=== PATIENT | female | born 1980 | race Caucasian/White ===

== ENCOUNTER 2019-03-03 14:49 | Emergency (ER) | payer BC, SELFPAY ==
--- OUTSIDE RECORDS SUMMARY | 2019-03-03 14:52 | XMS REPORT ---
:1980 [facility] Address [address] [place] [address] Dr. Bro [address] [place] [address] Care Team Providers Name Role Phone Unavailable Unavailable Unavailable Problems This patient has no known problems. Allergies, Adverse Reactions, Alerts This patient has no known allergies or adverse reactions. Medications This patient has no known medications.
--- OUTSIDE RECORDS SUMMARY | 2019-03-03 14:52 | XMS REPORT | Summary of Care ---
:1980 Author Organization [facility] Address [address] [place] [id number] Care Team Providers Name Role Phone Pcp, Patient Does Not Have A Primary Care Provider Reason for Referral Radiology Services (STAT) Status Reason Specialty Diagnoses / Referred By Referred To Procedures Contact Contact New Request Diagnostic Diagnoses Suicidal ideation Dimitri Minor Radiology Procedures XR CHEST 1 VW III, PA [address] [place] [address] [facility] [place] [address] Radiology Services (STAT) Status Reason Specialty Diagnoses / Referred By Referred To Procedures Contact Contact New Request Diagnostic Diagnoses Suicidal ideation Dimitri Minor Radiology Procedures XR CHEST 1 VW III, PA [address] [place] [address] [facility] [place] [address] Reason for Visit Reason Comments Suicidal ideation Auth/Cert Status Reason Specialty Diagnoses / Referred By Referred To Procedures Contact Contact [facility] [address] [place] [address] [place] [address] Encounter Details Date Type Department Care Team Description 02/27/2019 - Emergency ADC-Emergency Dimitri Minor Depression, unspecified depression type (Primary Dx); 02/28/2019 Department III, PA Suicidal ideation; [address] [place] [address] Alcoholic intoxication [place] [address] [facility] [place] [address] [phone] Allergies No Known Allergiesdocumented as of this encounter (statuses as of 02/28/2019) Medications No known medicationsdocumented as of this encounter (statuses as of 02/28/2019) Active Problems No known active problemsdocumented as of this encounter (statuses as of 2018) Social History Tobacco Use Types Packs/Day Years Used Date Never Assessed Sex Assigned at Date Recorded Not on file Job Start Date Occupation Industry Not on file Not on file Not on file Travel History Travel Start Travel End No recent travel history available. documented as of this encounter Last Filed Vital Signs Vital Sign Reading Time Taken Comments Blood Pressure 104/59 02/28/2019 4:56 AM CDT Pulse 67 02/28/2019 4:56 AM CDT Temperature 37 C (98.6 F) 02/27/2019 10:00 PM CDT Respiratory Rate 18 02/28/2019 4:56 AM CDT Oxygen Saturation 97% 02/28/2019 4:56 AM CDT Inhaled Oxygen Concentration - - Weight 59 kg (130 lb) 02/27/2019 3:32 PM CDT Height - - Body Mass Index - - documented in this encounter Discharge Instructions Walt Castro MD - 02/28/2019 DIAGNOSIS Diagnoses that have been ruled out: None Diagnoses that are still under consideration: None Final diagnoses: Suicidal ideation Alcoholic intoxication without complication Depression, unspecified depression type NO LIFE-THREATENING FINDINGS ON TODAY'S EXAM. PROCEDURES IN THE ER TODAY: Orders Placed This Encounter Procedures XR CHEST 1 VW ACETAMINOPHEN ADC / LCC - DRUG SCREEN TRIAGE THYROID STIMULATING HORMONE ETHANOL CBC WITH DIFF COMP. METABOLIC PANEL (72571) URINALYSIS POCT TEST CBC WITH DIFFERENTIAL ETHANOL MEDICATIONS ADMINISTERED IN THE ER TODAY AND DISCHARGE MEDICATIONS: Orders Placed This Encounter Medications nicotine (NICODERM) 21 mg/24 hr patch 1 Patch NaCl 0.9% (NS) bolus infusion 1,000 mL ondansetron (ZOFRAN (PF)) injection 4 mg LORazepam (ATIVAN) tablet 1 mg acetaminophen (TYLENOL) tablet 650 mg FOLLOW-UP RECOMMENDATIONS: RECOMMEND FOLLOW-UP WITH THE [facility] ALREADY SCHEDULED FOR TOMORROW MORNING RETURN TO ER FOR WORSENING OF SYMPTOMS documented in this encounter Plan of Treatment Name Type Priority Associated Diagnoses Order Schedule EKG-12 LEAD ROUTINE HEART STATION Routine ONCE for 1 Occurrences starting 02/27/2019 until 02/27/2019 Health Maintenance Due Date Last Done Comments VARICELLA VACCINES (1 of 2 - 13+ 1994 2-dose series) DTaP,Tdap,and Td Vaccines (1 - 2000 Tdap) PAP SMEAR 2002 INFLUENZA VACCINE (#1) 2019 PNEUMOCOCCAL 0-64 YEARS COMBINED Aged Out No longer eligible based on SERIES patient's age to complete this topic documented as of this encounter Procedures Procedure Name Priority Date/Time Associated Diagnosis Comments ETHANOL STAT 02/27/2019 9:39 Alcoholic Results for this PM CDT intoxication without procedure are in complication the results section. XR CHEST 1 VW STAT 02/27/2019 5:12 Suicidal ideation Results for this PM CDT procedure are in the results section. POCT TEST Routine 02/27/2019 4:37 Suicidal ideation Results for this PM CDT procedure are in the results section. CBC WITH DIFFERENTIAL STAT 02/27/2019 4:29 Suicidal ideation Results for this PM CDT procedure are in the results section. ADC / LCC - DRUG STAT 02/27/2019 4:29 Suicidal ideation Results for this SCREEN TRIAGE PM CDT procedure are in the results section. URINALYSIS STAT 02/27/2019 4:29 Suicidal ideation Results for this PM CDT procedure are in the results section. CBC WITH DIFF Routine 02/27/2019 4:29 Suicidal ideation Results for this PM CDT procedure are in the results section. ETHANOL STAT 02/27/2019 4:29 Suicidal ideation Results for this PM CDT procedure are in the results section. ACETAMINOPHEN STAT 02/27/2019 4:29 Suicidal ideation Results for this PM CDT procedure are in the results section. COMP. METABOLIC PANEL STAT 02/27/2019 4:29 Suicidal ideation Results for this (50088) PM CDT procedure are in the results section. THYROID STIMULATING STAT 02/27/2019 4:29 Suicidal ideation Results for this HORMONE PM CDT procedure are in the results section. documented in this encounter Results ETHANOL (02/27/2019 9:39 PM CDT) ALCOHOL 45 mg/dL [facility] Specimen Blood - VENOUS Narrative Performed At <10 Negative [facility] 50-100 Toxic >100 Depression of TOOL AND DIE INSPECTOR >400 Fatalities Reported Performing Organization Address City/State/Zipcode Phone Number [facility] CLIA: [id number], [address] [place] [address] XR CHEST 1 VW (02/27/2019 5:12 PM CDT) Specimen Impressions Performed At PACS/VR/DOSE 1. Normal heart size. Lungs are clear. No acute cardiopulmonary abnormality. Narrative Performed At * * * * * * * * ORIGINAL REPORT * * * * * * * * PACS/VR/DOSE PROCEDURE: CHEST SINGLE VIEW PORTABLE 02/27/2019 at 5:12 PM CLINICAL INDICATION: pre admission COMPARISON:None Procedure Note [facility], Radiant Results Inft User - 02/27/2019 5:28 PM CDT * * * * * * * * ORIGINAL REPORT * * * * * * * * PROCEDURE: CHEST SINGLE VIEW PORTABLE 02/27/2019 at 5:12 PM CLINICAL INDICATION: pre admission COMPARISON: None IMPRESSION 1. Normal heart size. Lungs are clear. No acute cardiopulmonary abnormality. Performing Organization Address City/State/Zipcode Phone Number PACS/VR/DOSE POCT TEST (02/27/2019 4:37 PM CDT) POCT PREG negative On board controls acceptable present with C Line Specimen Urine - URINE, CLEAN CATCH CBC WITH DIFFERENTIAL (02/27/2019 4:29 PM CDT) WBC 8.23 4.30 - 11.10 [facility] 10*3/L [facility] RBC 4.65 3.93 - 5.25 [facility] 10*6/L [facility] HGB 14.4 11.6 - 15.0 g/dL [facility] HCT 42.0 35.7 - 45.2 % [facility] MCV 90.3 80.6 - 95.5 fL [facility] MCH 31.0 25.9 - 32.8 pg [facility] MCHC 34.3 31.6 - 35.1 g/dL [facility] RDW-SD 47.8 39.0 - 49.9 fL [facility] RDW-CV 14.5 12.0 - 15.5 % [facility] PLT 300 166 - 358 [facility] 10*3/L [facility] MPV 10.4 9.5 - 12.9 fL [facility] NRBC/100 WBC 0.0 0.0 - 10.0 /100 [facility] WBCs HOSPITAL LAB[facility]ORY NRBC x10^3 <0.01 10*3/L [facility] GRAN MAT (NEUT) % 56.4 % [facility] IMM GRAN % 0.50 % [facility] LYMPH % 35.1 % [facility] MONO % 6.3 % [facility] EOS % 1.2 % [facility] BASO % 0.5 % [facility] GRAN MAT x10^3(ANC) 4.64 1.88 - 7.09 [facility] 10*3/uL HOSPITAL LAB[facility]ORY IMM GRAN x10^3 0.04 0.00 - 0.06 [facility] 10*3/uL HOSPITAL [facility] LYMPH x10^3 2.89 1.32 - 3.29 [facility] 10*3/uL HOSPITAL [facility] MONO x10^3 0.52 0.33 - 0.92 [facility] 10*3/uL HOSPITAL [facility] EOS x10^3 0.10 0.03 - 0.39 [facility] 10*3/uL HOSPITAL [facility] BASO x10^3 0.04 0.01 - 0.07 [facility] 10*3/uL [facility]ITAL [facility] Specimen Blood - HAND, RIGHT Performing Organization Address City/State/Zipcode Phone Number [facility] CLIA: [id number], [address] [place] [address] URINALYSIS (02/27/2019 4:29 PM CDT) APPEARANCE Clear Clear [facility] COLOR Yellow Yellow [facility] PH 5.5 4.8 - 8.0 [facility] SP GRAVITY <=1.005 1.003 - 1.030 [facility] GLU U QUAL Negative Negative [facility] BLOOD Negative Negative [facility] KETONES Negative Negative [facility] PROTEIN Negative Negative [facility] UROBILIN 0.2 mg/dL 0-1.0 mg/dL [facility] BILIRUBIN Negative Negative [facility] NITRITE Negative Negative [facility] LEUK DESTINY Negative Negative [facility] RBC/HPF 0 0 - 3 HPF [facility] WBC/HPF 0 0 - 5 HPF [facility] BACTERIA Negative Negative [facility] Specimen Urine - URINE, CLEAN CATCH Performing Organization Address City/State/Zipcode Phone Number [facility] CLIA: [id number], [address] [place] [address] COMP. METABOLIC PANEL (00745) (02/27/2019 4:29 PM CDT) NA 147 (H) 135 - 145 [facility] mmol/L [facility] K 3.7 3.5 - 5.0 [facility] mmol/L [facility] CL 117 (H) 98 - 108 mmol/L [facility] CO2 TOTAL 17 (L) 23 - 31 mmol/L [facility] AGAP 13 2 - 16 [facility] BUN 5 (L) 7 - 23 mg/dL [facility] GLUCOSE 83 70 - 110 mg/dL [facility] CREATININE 0.74 0.50 - 1.04 [facility] mg/dL [facility] TOTAL BILI 0.3 0.1 - 1.1 mg/dL [facility] CALCIUM 9.3 8.6 - 10.6 [facility] mg/dL [facility] T PROTEIN 7.5 6.3 - 8.2 g/dL [facility] ALBUMIN 4.7 3.5 - 5.0 g/dL [facility] ALK PHOS 55 34 - 122 U/L [facility] ALT(SGPT) 20 9 - 51 U/L [facility] AST(SGOT) 27 13 - 40 U/L [facility] eGFR Calculation 88.3 mL/min/1.73m2 [facility] (Non-[facility] [place]) eGFR Calculation 107.0 mL/min/1.73m2 [facility] () [facility] Specimen Blood - HAND, RIGHT Narrative Performed At Association of Glomerular Filtration Rate (GFR) [facility] and Staging of Kidney Disease* + + +- + | GFR (mL/min/1.73 m2)| With Kidney Damage|Without Kidney Damage + + +- + |>90| Stage one| Normal + + +- + |60-89|S tage two| Decreased GFR + + +- + |30-59|S tage three| Stage three + + +- + |15-29|S tage four | Stage four + + +- + |<15 (or dialysis)|Stage five | Stage five + + +- + *Each stage assumes the associated GFR level has been in effect for at least three months.Stages 1 to 5, with or without kidney disease, indicate chronic kidney disease. Notes: Determination of stages one and two (with eGFR >59mL/min/1.73 m2) requires estimation of kidney damage for at least three months as defined by structural or functional abnormalities of the kidney, manifested by either: Pathological abnormalities or Markers of kidney damage (including abnormalities in the composition of the blood or urine or abnormalities in imaging tests). Performing Organization Address [facility] Phone Number [facility] CLIA: [id number], [address] [place], [place] [address] LAB[address] ETHANOL (02/27/2019 4:29 PM CDT) ALCOHOL 171 mg/dL [facility] Specimen Blood - HAND, RIGHT Narrative Performed At <10 Negative [facility] 50-100 Toxic >100 Depression of TOOL AND DIE INSPECTOR >400 Fatalities Reported Performing Organization Address [facility] Phone Number [facility] CLIA: [id number], [address] [place] [address] [address] THYROID STIMULATING HORMONE (02/27/2019 4:29 PM CDT) TSH 1.97 0.45 - 4.70 mIU/L [facility] Specimen Blood - HAND, RIGHT Performing Organization Address [facility] Phone Number [facility] CLIA: [id number], [address] [place], [place] [address] LAB[address] ADC / LCC - DRUG SCREEN TRIAGE (02/27/2019 4:29 PM CDT) BENZO U Negative Negative [facility] ANNALISA U Negative Negative [facility] AMPHET Negative Negative [facility] THC Negative Negative [facility] METHADONE Negative Negative [facility] Meth U Negative Negative [facility] OPIATES Negative Negative [facility] Cocaine Metabolite Negative Negative [facility] PROPOXY Negative Negative [facility] Tric U Negative Negative [facility] PCP Negative Negative [facility] OXYCOD Negative Negative [facility] Specimen Urine - URINE, CLEAN CATCH Narrative Performed At Urine Drug Cutoff Ranges [facility] Benzodiazepines: 150 ng/mL Barbiturates: 200 ng/mL Amphetamine: 500 ng/mL Cannabinoids: 50ng/mL Methadone: 200 ng/mL Methamphetamine: 500 ng/mL Opiates: 100 ng/mL or 2000 ng/mL Cocaine: 150 ng/mL Propoxyphene:300 ng/mL Tricyclics:300 ng/mL Oxycodone: 100 ng/mL PCP: 25ng/mL The results are to be used only for medical (i.e., treatment) purposes. Unconfirmed screening results must not be used for non-medical purposes (e.g., employment testing, legal testing). Performing Organization Address City/State/[facility] Phone Number [facility] CLIA: [id number], [address] [place] [address] ACETAMINOPHEN (02/27/2019 4:29 PM CDT) ACETAMINOP <10.0 (L) 10.0 - 30.0 ug/mL [facility] Specimen Blood - HAND, RIGHT Narrative Performed At Toxic: Greater than 200 ug/mL @ 4 hour post [facility] ingestion or greater than 50 ug/mL @ 12 hour post ingestion Performing Organization Address City/[facility] Phone Number [facility] CLIA: [id number], [address] [place] [address] documented in this encounter Visit Diagnoses Diagnosis Depression, unspecified depression type - Primary Suicidal ideation Alcoholic intoxication without complication documented in this encounter Administered Medications Medication Order MAR Action Action Date Dose Rate Site nicotine (NICODERM) 21 mg/24 hr Given 02/27/2019 4:36 PM CDT 1 Patch patch 1 Patch 1 Patch, Topical, Administer over 24 Hours, Q24H, First dose on 02/27/19 at 1700, Until Discontinued, Routine Medication Order MAR Action Action Date Dose Rate Site acetaminophen (TYLENOL) tablet Given 02/27/2019 9:58 PM CDT 650 mg 650 mg 650 mg, Oral, ONCE, 1 dose, 02/27/19 at 2300, JONAS LORazepam (ATIVAN) tablet 1 mg Given 02/27/2019 7:03 PM CDT 1 mg 1 mg, Oral, ONCE, 1 dose, 02/27/19 at 1845, JONAS NaCl 0.9% (NS) bolus infusion New Bag 02/27/2019 4:36 PM CDT 1,000 mL 999 mL/hr 1,000 mL at 999 mL/hr, 1,000 mL, IV Infusion, ONCE, 1 dose, [place] 02/27/19 at 1745, STAT documented in this encounter"
[2019-03-03 15:28] LABS: Absolute Lymphocytes (CBC) 3.6 K/uL (0.7-4.9); Basophils % 0.6 % (0-1.3); Hematocrit 42.7 % (36.0-45.0); Lymphocytes % 44.4 % (15.3-44.8); MPV 8.2 fL (7.6-11.3)
[2019-03-03 15:33] LABS: Protime INR 0.99
[2019-03-03 16:07] LABS: ALT/SGPT 19 U/L (12-78); AST/SGOT 16 U/L (15-37); Albumin 3.6 g/dL (3.4-5.0); Alkaline Phosphatase 52 U/L (45-117); BUN Blood Urea Nitrogen 7 mg/dL (7-18); Bicarbonate 24 mmol/L (21-32); Bilirubin Direct < 0.1 mg/dL (0-0.2); Bilirubin Total 0.2 mg/dL (0.2-1.0); Glucose Level 91 mg/dL (74-106); Potassium 3.6 mmol/L (3.5-5.1); Protein, Total 6.8 g/dL (6.4-8.2); Sodium Level 146 mmol/L (136-145)
[2019-03-03] MEDS ORDERED: NA CHLORIDE 0.9% 1,000 ML ONE (16:34)
[2019-03-03] MEDS ORDERED: FOLIC ACID 1 MG, MULTIVITAMINS INJ 10 ML, THIAMINE HCL 100 MG in NA CHLORIDE 0.9% 1,000 ML IV ONE (17:00)
[2019-03-03 18:04] LABS: Urine Blood 1+ (NEG); Urine Glucose NEGATIVE (NEG); Urine Protein NEGATIVE (NEG); Urine pH 5.5 (5.0-7.0)
[2019-03-03 18:18] LABS: Barbiturates NEGATIVE (NEGATIVE); Benzodiazepines NEGATIVE (NEGATIVE); Cocaine NEGATIVE (NEGATIVE); METHAMPHETAM NEGATIVE (NEGATIVE); Methadone NEGATIVE (NEGATIVE); Opiates NEGATIVE (NEGATIVE); Phencyclidine NEGATIVE (NEGATIVE); THC Cannibis NEGATIVE (NEGATIVE)
[2019-03-03] MEDS ORDERED: LORAZEPAM 1 MG TABLET ONE (18:18)
--- NOTE | 2019-03-03 21:24 | EDPHYS ---
Physician Documentation [facility] Name: Ame Pozo Age: 38 yrs Sex: Female : 1980 Arrival Date: 03/03/2019 Time: 14:51 Bed 17 Private MD: ED Physician Moi Dominguez HPI: 03/03 16:31 This 38 yrs old Female presents to ER via EMS with complaints of alcohol kb intoxication. 16:31 The patient presents to the emergency department after a known overdose, a result of kb recreational substance abuse. Context: Method: the patient has a confirmed or suspected ingestion, of alcohol, Time: last night, Extent: severe ingestion, the OD/poisoning occurred at at home. Associated signs and symptoms: The patient has no apparent associated signs or symptoms. Severity of symptoms: At their worst the symptoms were severe in the emergency department the symptoms are unchanged. The patient has not experienced similar symptoms in the past. The patient has not recently seen a physician. EMS reports mother called because pt was drinking last night and is still intoxicated. States pt denies SI or HI on scene, but reported she told them she was suicidal in route to the ER. Pt denies being homicidal or suicidal and reports she never said she was suicidal. Drank alcohol with a friend last night, but wasn't trying to harm herself. Reports she is not depressed.. Historical: - Allergies: 15:08 No Known Allergies; hb - Home Meds: 15:08 Buspirone Oral [Active]; hb - PMHx: 15:08 Seizures; hb - PSHx: 15:08 None; hb - Immunization history:: Adult Immunizations up to date. - Ebola Screening: : No symptoms or risks identified at this time. - Social history:: Smoking status: Patient uses tobacco products, smokes one pack cigarettes per day. ROS: 16:31 Constitutional: Negative for fever, chills, and weight loss, Eyes: Negative for injury, kb pain, redness, and discharge, ENT: Negative for injury, pain, and discharge, Neck: Negative for injury, pain, and swelling, Cardiovascular: Negative for chest pain, palpitations, and edema, Respiratory: Negative for shortness of breath, cough, wheezing, and pleuritic chest pain, Abdomen/GI: Negative for abdominal pain, nausea, vomiting, diarrhea, and constipation, Back: Negative for injury and pain, MS/Extremity: Negative for injury and deformity, Skin: Negative for injury, rash, and discoloration, Neuro: Negative for headache, weakness, numbness, tingling, and seizure, Psych: Negative for depression, anxiety, suicide ideation, homicidal ideation, and hallucinations. Exam: 16:30 Constitutional: This is a well developed, well nourished patient who is awake, alert, kb and in no acute distress. Head/Face: Normocephalic, atraumatic. ENT: Nares patent. No nasal discharge, no septal abnormalities noted. Tympanic membranes are normal and external auditory canals are clear. Oropharynx with no redness, swelling, or masses, exudates, or evidence of obstruction, uvula midline. Mucous membranes moist. Neck: Trachea midline, no thyromegaly or masses palpated, and no cervical lymphadenopathy. Supple, full range of motion without nuchal rigidity, or vertebral point tenderness. No Meningismus. Chest/axilla: Normal chest wall appearance and motion. Nontender with no deformity. No lesions are appreciated. Cardiovascular: Regular rate and rhythm with a normal S1 and S2. No gallops, murmurs, or rubs. Normal PMI, no JVD. No pulse deficits. Respiratory: Lungs have equal breath sounds bilaterally, clear to auscultation and percussion. No rales, rhonchi or wheezes noted. No increased work of breathing, no retractions or nasal flaring. Abdomen/GI: Soft, non-tender, with normal bowel sounds. No distension or tympany. No guarding or rebound. No evidence of tenderness throughout. Back: No spinal tenderness. No costovertebral tenderness. Full range of motion. Skin: Warm, dry with normal turgor. Normal color with no rashes, no lesions, and no evidence of cellulitis. MS/ Extremity: Pulses equal, no cyanosis. Neurovascular intact. Full, normal range of motion. Neuro: Awake and alert, GCS 15, oriented to person, place, time, and situation. Cranial nerves II-XII grossly intact. Motor strength 5/5 in all extremities. Sensory grossly intact. Cerebellar exam normal. Normal gait. 16:30 Eyes: Pupils: dilated, bilaterally, Nystagmus: Vital Signs: 15:00 BP 123 / 68; Pulse 73; Resp 16 S; Temp 98.1(TE); Pulse Ox 97% on R/A; jl7 19:41 BP 133 / 79; Pulse 87; Resp 17; Temp 98.5(O); Pulse Ox 100% on R/A; ar5 MDM: 14:59 Patient medically screened. kb 16:30 Data reviewed: vital signs, nurses notes. Data interpreted: Pulse oximetry: on room air kb is 97 %. Interpretation: normal. 18:16 ED course: Pt is more sober now. Still denies suicidal or homicidal ideations. . kb 19:29 ED course: Pt's mother came and talked to pt. Mother became mad and left with pt's kb belongings. Pt states "My mom is freaking out, can I just sign out AMA?" Pt educated that she cannot sign out or leave alone because of her elevated etoh level. Pt states "Can you retest me then?" Will retest etoh. 21:19 ED course: Mother brought pt back her belongings. Mother is upset about pt not being kb transferred to [facility] because she needs rehab for alcoholism. Pt has appt tomorrow at 0900 with [facility] and they are supposed to discuss options for inpt rehab. Pt continues to deny homicidal or suicidal ideations. Pt ambulates with steady gait, in speaking clearly.. 21:23 Counseling: I had a detailed discussion with the patient and/or guardian regarding: the kb historical points, exam findings, and any diagnostic results supporting the discharge/admit diagnosis, lab results, radiology results, the need for outpatient follow up. ED course: Pt walked out of ER with Mother. . 03/03 14:59 Order name: Acetaminophen 03/03 14:59 Order name: Basic Metabolic Panel; Complete Time: 16:09 kb 03/03 14:59 Order name: CBC with Diff; Complete Time: 15:30 kb 03/03 14:59 Order name: ETOH Level; Complete Time: 16:09 kb 03/03 14:59 Order name: Hepatic Function; Complete Time: 16:09 kb 03/03 14:59 Order name: PT-INR; Complete Time: 15:42 kb 03/03 14:59 Order name: Ptt, Activated; Complete Time: 15:42 kb 03/03 14:59 Order name: Salicylate; Complete Time: 16:09 kb 03/03 14:59 Order name: Urine Drug Screen; Complete Time: 18:21 kb 03/03 15:00 Order name: Acetaminophen Level; Complete Time: 16:09 EDMS 03/03 18:00 Order name: Urine Dipstick--Ancillary (enter results); Complete Time: 18:07 em1 03/03 18:00 Order name: Urine --Ancillary (enter results); Complete Time: 18:07 em1 03/03 19:29 Order name: ETOH Level; Complete Time: 20:05 kb 03/03 14:59 Order name: Urine Test (obtain specimen); Complete Time: 17:58 kb 03/03 14:59 Order name: EKG; Complete Time: 15:01 kb 03/03 14:59 Order name: EKG - Nurse/Tech; Complete Time: 15:31 kb 03/03 14:59 Order name: IV Saline Lock; Complete Time: 15:31 kb 03/03 14:59 Order name: Labs collected and sent; Complete Time: 15:31 kb 03/03 14:59 Order name: Urine Dipstick-Ancillary (obtain specimen); Complete Time: 17:58 kb Administered Medications: 17:12 Drug: NS 0.9% 1000 ml Route: IV; Rate: 1 bolus; Site: left forearm; jl7 21:36 Follow up: IV Status: Completed infusion ak1 17:13 Drug: Banana Bag - (NS 0.9% 1000 ml, foLIC Acid 1 mg, Thiamine 100 mg, Multivitamin 1 jl7 amp) Route: IV; Rate: calculated rate; Site: left forearm; 21:36 Follow up: IV Status: Completed infusion ak1 18:20 Drug: Ativan 1 mg Route: PO; jl7 21:36 Follow up: Response: No adverse reaction ak1 Disposition: 03/04 07:17 Co-signature as Attending Physician, Moi Dominguez MD I agree with the assessment and patel plan of care. Disposition: 03/03/19 21:24 Discharged to Home. Impression: Alcohol abuse with intoxication. - Condition is Stable. - Discharge Instructions: Alcohol Intoxication, [id number]. - Medication Reconciliation Form, Thank You Letter, Antibiotic Education, Prescription Opioid Use form. - Follow up: Emergency Department; When: As needed; Reason: Worsening of condition. Follow up: Private Physician; When: 2 - 3 days; Reason: Recheck today's complaints, Continuance of care, Re-evaluation by your physician. Signatures: Dispatcher [employer] EDNelly House, TESTING LEAD-Collette CONTRERAS-Moi Bravo MD MD cha Krenek, Amber, RN RN ak1 Danielle Mortensen, RN RN Keven Oviedo RN RN jl7 Corrections: (The following items were deleted from the chart) 03/03 21:31 21:24 03/03/2019 21:24 Discharged to Home. Impression: Alcohol abuse with intoxication. ak1 Condition is Stable. Forms are Medication Reconciliation Form, Thank You Letter, Antibiotic Education, Prescription Opioid Use. Follow up: Emergency Department; When: As needed; Reason: Worsening of condition. Follow up: Private Physician; When: 2 - 3 days; Reason: Recheck today's complaints, Continuance of care, Re-evaluation by your physician. kb
--- NOTE | 2019-03-03 21:24 | ER ---
Nurse's Notes [facility] Name: Ame Pozo Age: 38 yrs Sex: Female : 1980 Arrival Date: 03/03/2019 Time: 14:51 Bed 17 Private MD: Diagnosis: Alcohol abuse with intoxication Presentation: 03/03 15:06 Presenting complaint: EMS states: Mother called for alcohol intoxication and suicidal hb ideation. On scene pt stated "I am just going to shoot my brains out.". Transition of care: patient was not received from another setting of care. Onset of symptoms was March 03, 2019. Risk Assessment: Do you want to hurt yourself or someone else? Patient reports desire/thoughts of hurting themselves or someone else. Provider notified. Care prior to arrival: None. 15:06 Method Of Arrival: EMS: [facility] 15:06 Acuity: RAFAEL 2 hb 15:10 Initial Sepsis Screen: Does the patient meet any 2 criteria? No. Patient's initial jl7 sepsis screen is negative. Does the patient have a suspected source of infection? No. Patient's initial sepsis screen is negative. Triage Assessment: 19:03 General: Appears in no apparent distress. Behavior is calm, cooperative. Pain: Denies ak1 pain. EENT: No signs and/or symptoms were reported regarding the EENT system. Neuro: Level of Consciousness is awake, alert, obeys commands, Oriented to person, place, time, situation, Poultry Trimmer are equal bilaterally Moves all extremities. Gait is steady, Speech is normal. Cardiovascular: No deficits noted. Respiratory: No deficits noted. GI: No signs and/or symptoms were reported involving the gastrointestinal system. : No signs and/or symptoms were reported regarding the genitourinary system. Derm: No signs and/or symptoms reported regarding the dermatologic system. Musculoskeletal: No signs and/or symptoms reported regarding the musculoskeletal system. Historical: - Allergies: 15:08 No Known Allergies; hb - Home Meds: 15:08 Buspirone Oral [Active]; hb - PMHx: 15:08 Seizures; hb - PSHx: 15:08 None; hb - Immunization history:: Adult Immunizations up to date. - Ebola Screening: : No symptoms or risks identified at this time. - Social history:: Smoking status: Patient uses tobacco products, smokes one pack cigarettes per day. Screenin:55 Abuse screen: Denies threats or abuse. Denies injuries from another. Nutritional jl7 screening: No deficits noted. Tuberculosis screening: No symptoms or risk factors identified. Fall Risk IV access (20 points). Gait- Impaired (20 pts.). Mental Status- Overestimates/Forgets Limitations (15 pts.). Total Fitzpatrick Fall Scale indicates High Risk Score (45 or more points). Fall prevention measures have been instituted. Side Rails Up X 2 Placed Close to Nursing Station Frequent Obs/Assessments Occuring As available patient and family educated on Fall Prevention Program and Strategies. Assessment: 19:04 Reassessment: Patient appears in no apparent distress at this time. pt eating sandwich ak1 and fruit. 19:24 Reassessment: pt mother at bedside. pt mother told the ER provider would be in to speak ak1 with her, pt mother slammed the ER door and left pt room with pt's cell phone, money and wallet. 20:07 Reassessment: Patient appears in no apparent distress at this time. pt denies SI or HI. ak1 pt understands that she need to finish her fluids. pt informed by provider that once her ETOH level has decreased and she had a ride she could leave. pt is in agreement with this plan of care. 21:19 Reassessment: pt mother returned and brought pt her cell phone. pt attempting to locate ak1 a ride and a place to stay for the night in order to make it to her [facility] appointment tomorrow. Psych: 15:00 Subjective: unable to assess, pt is confused. Objective: Patient is cooperative, Speech jl7 is slurred, Affect is. Interventions: Removed personal items and placed in bag. Patient placed in hospital gown. Searched person for dangerous items. Belonging list filled out. unable to provide urine at this time. Suicide Risk Assessment: Sad Person Scale: Sex of patient: Female: Score 0 points. Age of patient: Score 0 point if patient falls outside of specified age parameters. Depression: Score 1 point if signs of depression are present. Previous Attempt: Score 0 point if patient has not previously attempted suicide. Substance Abuse: Score 1 point if patient abuses alcohol or drugs. Rational Thinking: Score 1 point if patient is lacking rational thinking. Social Support: Score 0 if social support is present/available. Organized Plan: Score 0 if patient did not have an organized plan in place. Relationship: Score 0 point if patient has a spouse or domestic partner. Chronic Sickness: Score 0 point if patient does not have a chronic illness, debilitating, or severe disorder. TOTAL POINTS: If total points are 3-4, proposed clinical action is close follow-up/consider hospitalization. Safety Checks: Personal items have been removed. Door is open. No visitors are present at this time. Patient uses Last use was 1 days ago. Vital Signs: 15:00 BP 123 / 68; Pulse 73; Resp 16 S; Temp 98.1(TE); Pulse Ox 97% on R/A; jl7 19:41 BP 133 / 79; Pulse 87; Resp 17; Temp 98.5(O); Pulse Ox 100% on R/A; ar5 ED Course: 14:51 Patient arrived in ED. em1 14:58 Nelly Gallegos FNP-C [facility] kb 14:59 Moi Dominguez MD is Attending Physician. kb 15:06 EKG done, by technical support professional. reviewed by Moi Dominguez MD. sm3 15:07 Triage completed. hb 15:07 Arm band placed on. hb 15:15 Initial lab(s) drawn, by ri, sent to lab. Inserted saline lock: 20 gauge in left jl7 forearm, using aseptic technique. Blood collected. 15:30 Keven Oviedo, RN is Primary Nurse. jl7 15:55 Patient has correct armband on for positive identification. Placed in gown. Bed in low jl7 position. Call light in reach. Side rails up X2. Warm blanket given. 15:57 Acetaminophen Sent. jl7 17:58 Urine collected: hat, yellow \\T\\ cloudy. dh3 19:05 No provider procedures requiring assistance completed. Inserted 22g in left AC in place.ak1 21:31 IV discontinued, intact, bleeding controlled, No redness/swelling at site. Pressure ak1 dressing applied. Administered Medications: 17:12 Drug: NS 0.9% 1000 ml Route: IV; Rate: 1 bolus; Site: left forearm; jl7 21:36 Follow up: IV Status: Completed infusion ak1 17:13 Drug: Banana Bag - (NS 0.9% 1000 ml, foLIC Acid 1 mg, Thiamine 100 mg, Multivitamin 1 jl7 amp) Route: IV; Rate: calculated rate; Site: left forearm; 21:36 Follow up: IV Status: Completed infusion ak1 18:20 Drug: Ativan 1 mg Route: PO; jl7 21:36 Follow up: Response: No adverse reaction ak1 Outcome: 21:24 Discharge ordered by MD. trevino 21:30 Discharged to home ambulatory, pt left with her mother. ak1 21:30 Condition: stable 21:30 Discharge instructions given to pt left prior to getting discharge instructions. 21:31 Patient left the ED. ak1 Signatures: Nelly Gallegos, RODOLFO CONTRERAS-Adam Loza em1 Hayley Harding RN RN ak1 Danielle Mortensen RN RN Keven Muñoz RN RN jl7 Delilah Saxena3 Emma Khan 3 Roxana Ramirez wa5 Corrections: (The following items were deleted from the chart) 15:55 15:32 Subjective: Patient's mood is jl7 jl7
--- NOTE | 2019-03-04 07:15 | EKG ---
Test Date: 2019-03-03 Test Time: 14:56:06 Deputy Sheriff Custody: BISHOP MEASUREMENT RESULTS: Intervals: Rate: 75 AR: 166 QRSD: 88 QT: 422 QTc: 471 [place]: P: 63 AR: 166 QRS: 15 T: 0 INTERPRETIVE STATEMENTS: Normal sinus rhythm Normal ECG Compared to ECG 07/14/2003 00:29:00 T-wave abnormality no longer present Electronically Signed On 03-04-19 07:13:29 CDT by Alan Sexton
== END 2019-03-03 21:31 | disposition home or self-care (01) ==
LOC: ER 14:49
DX: F10.129 Alcohol abuse with intoxication, unspecified (principal); G40.909 Epilepsy, unspecified, not intractable, without status epilepticus; F17.210 Nicotine dependence, cigarettes, uncomplicated
CPT/HCPCS: 36415; 80048; 80076; 80307; 80320; 80329; 81003; 81025; 85025; 85610; 85730; 93005; 96365; 96366; 99284; J3411; J7030